=== PATIENT | female | born 1965 | race Caucasian/White ===

== ENCOUNTER 2017-08-15 22:49 | Emergency (ER) | payer OTHER ==
[2017-08-16] MEDS ORDERED: MAG HYDROX/AL HYDROX/SIMETH 30 ML, HYOSCYAMINE ELIXIR 10 ML, CIMETIDINE HCL 300 MG, LID... PO STA ×4 (00:58)
--- NOTE | 2017-08-16 01:04 | ED ---
Abdominal Pain HPI - General Chief Complaint: Abdominal Pain Stated Complaint: Abdominal Pain Time Seen by Provider: 08/16/17 00:49 Source: patient, RN notes reviewed Mode of arrival: wheelchair Limitations: no limitations - History of Present Illness Initial Comments: This is a 51-year-old female who presents to the emergency department with chief complaint of abdominal pain. Patient states that she ate a Caesar salad for dinner tonight. She states that when she returned home she developed epigastric burning pain with intermittent sharp pain. She states that she also developed some diarrhea. Patient states that her daughter ate the same food this evening and also developed diarrhea. Patient states that the epigastric pain has been constant. She does report a history of acid reflux. She states that she did try to take some Tums with minimal relief. She denies any fevers or chills, chest pain or shortness of breath. She does state that when the sharp pain comes on she becomes diaphoretic. She states the pain is made better by pushing on her stomach. - Related Data Previous Rx's Medication Instructions Recorded Omeprazole [PriLOSEC] 20 mg PO AC-BRKFST #10 cap 08/16/17 Allergies Allergy/AdvReac Type Severity Reaction Status Date / Time Penicillins Allergy Unknown Verified 08/15/17 23:06 Review of Systems ROS Statement: Those systems with pertinent positive or pertinent negative responses have been documented in the HPI. ROS Other: All systems not noted in ROS Statement are negative. Past Medical History Past Medical History: Asthma, Hypertension History of Any Multi-Drug Resistant Organisms: None Reported Past Surgical History: Section, Hysterectomy, Tonsillectomy Past Psychological History: No Psychological Hx Reported Smoking Status: Never smoker Past Alcohol Use History: Occasional Past Drug Use History: None Reported General Exam - General Exam Comments Initial Comments: General: Awake and alert, well-developed; in no apparent distress. HEENT: Head atraumatic, normocephalic. Pupils are equal, round and reactive to light. Extraocular movements intact. Oropharynx moist without erythema or exudate. Neck: Supple. Normal ROM. Cardiovascular: Regular rate and rhythm. No murmurs, rubs or gallops. Chest symmetrical. Respiratory: Lungs clear to auscultation bilaterally. No wheezes, rales or rhonchi. Normal respiratory effort with no use of accessory muscles. Abdomen: Soft, non-tender, non-distended. No rigidity, rebound or guarding. Normal bowel sounds in all 4 quadrants. Musculoskeletal: Normal ROM, no tenderness bilateral upper and lower extremities. Ambulating normally. Skin: [place], warm and dry without rashes or lesions. Neurological: Alert and oriented x3. CN II-XII grossly intact. Speech is fluent and answers are appropriate. No focal neuro deficits. Psychiatric: Normal mood and affect. No overt signs of depression or anxiety noted. Limitations: no limitations Course Vital Signs 08/15/17 23:03 Temperature 98.5 F Pulse Rate 67 Respiratory 18 Rate Blood Pressure 129/81 O2 Sat by Pulse 94 L Oximetry Medical Decision Making - Medical Decision Making This is a 51-year-old female who presented to the emergency department with chief complaint of epigastric pain, nausea and diarrhea. Patient developed epigastric pain at 7 PM last evening as well as diarrhea. She states that her daughter also developed diarrhea. They both had the same dinner. Patient states that she has been dealing with acid reflux issues recently and episodes of acid reflux have been becoming more frequent. Patient's vital signs been stable and she is afebrile. She was given a GI cocktail and did throw that up. CBC revealed a slightly elevated white count of 13.8 with a left shift at 12.5. CMP was unremarkable. Urine revealed 3+ ketones. No signs of infection. Abdomen is soft and non-tender on palpation. EKG revealed normal sinus rhythm. On reexamination, patient states after she threw up she feels 100 % improved. She states that she is no longer experiencing abdominal pain, nausea or feeling like she has to have diarrhea. Patient will be discharged home at this time. She is in no acute distress. She will follow-up with her primary care provider within 1-2 days. Patient will be started on omeprazole as she requested. She is in agreement and voices understanding. All questions answered. - Lab Data Result diagrams: 08/16/17 01:22 08/16/17 01:22 Lab Results 08/16/17 08/16/17 08/16/17 Range/Units 01:22 01:22 01:22 WBC 13.8 H (3.8-10.6) k/uL RBC 5.34 (3.80-5.40) m/uL Hgb 15.4 (11.4-16.0) gm/dL Hct 44.5 (34.0-46.0) % MCV 83.3 (80.0-100.0) fL MCH 28.9 (25.0-35.0) pg MCHC 34.7 (31.0-37.0) g/dL RDW 14.7 (11.5-15.5) % Plt Count 261 (150-450) k/uL Neutrophils % 91 % Lymphocytes % 4 % Monocytes % 3 % Eosinophils % 2 % Basophils % 0 % Neutrophils # 12.5 H (1.3-7.7) k/uL Lymphocytes # 0.5 L (1.0-4.8) k/uL Monocytes # 0.4 (0-1.0) k/uL Eosinophils # 0.3 (0-0.7) k/uL Basophils # 0.0 (0-0.2) k/uL PT 9.8 (9.0-12.0) sec INR 1.0 (<1.2) APTT 23.0 (22.0-30.0) sec Sodium 139 (137-145) mmol/L Potassium 3.5 (3.5-5.1) mmol/L Chloride 101 (98-107) mmol/L Carbon Dioxide 25 (22-30) mmol/L Anion Gap 13 mmol/L BUN 15 (7-17) mg/dL Creatinine 0.60 (0.52-1.04) mg/dL Est GFR (CKD-EPI)AfAm >90 (>60 ml/min/1.73 sqM) Est GFR (CKD-EPI)NonAf >90 (>60 ml/min/1.73 sqM) Glucose 137 H (74-99) mg/dL Calcium 9.3 (8.4-10.2) mg/dL Total Bilirubin 1.0 (0.2-1.3) mg/dL AST 29 (14-36) U/L ALT 48 (9-52) U/L Alkaline Phosphatase 66 (38-126) U/L Total Protein 7.0 (6.3-8.2) g/dL Albumin 4.3 (3.5-5.0) g/dL Amylase 39 (30-110) U/L Lipase 32 (23-300) U/L Urine Color Urine Appearance (Clear) Urine pH (5.0-8.0) Ur Specific [place] (1.001-1.035) Urine Protein (Negative) Urine Glucose (UA) (Negative) Urine Ketones (Negative) Urine Blood (Negative) Urine Nitrite (Negative) Urine Bilirubin (Negative) Urine Urobilinogen (<2.0) mg/dL Ur Leukocyte Esterase (Negative) Urine HCG, Qual (Not Detectd) 08/16/17 08/16/17 Range/Units 02:45 02:45 WBC (3.8-10.6) k/uL RBC (3.80-5.40) m/uL Hgb (11.4-16.0) gm/dL Hct (34.0-46.0) % MCV (80.0-100.0) fL MCH (25.0-35.0) pg MCHC (31.0-37.0) g/dL RDW (11.5-15.5) % Plt Count (150-450) k/uL Neutrophils % % Lymphocytes % % Monocytes % % Eosinophils % % Basophils % % Neutrophils # (1.3-7.7) k/uL Lymphocytes # (1.0-4.8) k/uL Monocytes # (0-1.0) k/uL Eosinophils # (0-0.7) k/uL Basophils # (0-0.2) k/uL PT (9.0-12.0) sec INR (<1.2) APTT (22.0-30.0) sec Sodium (137-145) mmol/L Potassium (3.5-5.1) mmol/L Chloride (98-107) mmol/L Carbon Dioxide (22-30) mmol/L Anion Gap mmol/L BUN (7-17) mg/dL Creatinine (0.52-1.04) mg/dL Est GFR (CKD-EPI)AfAm (>60 ml/min/1.73 sqM) Est GFR (CKD-EPI)NonAf (>60 ml/min/1.73 sqM) Glucose (74-99) mg/dL Calcium (8.4-10.2) mg/dL Total Bilirubin (0.2-1.3) mg/dL AST (14-36) U/L ALT (9-52) U/L Alkaline Phosphatase (38-126) U/L Total Protein (6.3-8.2) g/dL Albumin (3.5-5.0) g/dL Amylase (30-110) U/L Lipase (23-300) U/L Urine Color Yellow Urine Appearance Clear (Clear) Urine pH 7.0 (5.0-8.0) Ur Specific [place] 1.021 (1.001-1.035) Urine Protein Trace H (Negative) Urine Glucose (UA) Negative (Negative) Urine Ketones 3+ H (Negative) Urine Blood Negative (Negative) Urine Nitrite Negative (Negative) Urine Bilirubin Negative (Negative) Urine Urobilinogen <2.0 (<2.0) mg/dL Ur Leukocyte Esterase Negative (Negative) Urine HCG, Qual Not Detected (Not Detectd) Disposition Clinical Impression: Abdominal pain, Gastritis Disposition: HOME SELF-CARE Condition: Good Instructions: Abdominal Pain (ED), Gastroesophageal Reflux Disease (ED) Additional Instructions: Please take medications as prescribed. Please follow up with primary care provider within 1-2 days. Return to emergency department if symptoms should worsen or any concerns arise. Prescriptions: Omeprazole [PriLOSEC] 20 mg PO -BRKFST #10 cap Is patient prescribed a controlled substance at d/c from ED?: No Referrals: None,Stated [Primary Care Provider] - 1-2 days Time of Disposition: 03:25
[2017-08-16] MEDS ORDERED: ACETAMINOPHEN TAB 500 MG TAB PO STA (01:28)
[2017-08-16 01:32] LABS: Basophils % (A) 0 %; Eosinophils # (A) 0.3 k/uL (0-0.7); Eosinophils % (A) 2 %; HCT 44.5 % (34.0-46.0); HGB 15.4 gm/dL (11.4-16.0); Lymphocytes # (A) 0.5 k/uL (1.0-4.8); Lymphocytes % (A) 4 %; MCH 28.9 pg (25.0-35.0); MCHC 34.7 g/dL (31.0-37.0); MCV 83.3 fL (80.0-100.0); Mean Platelet Volume 6.5; Monocytes # (A) 0.4 k/uL (0-1.0); Monocytes % (A) 3 %; Neutrophils # (A) 12.5 k/uL (1.3-7.7); Neutrophils % (A) 91 %; Platelet Count 261 k/uL (150-450); RBC 5.34 m/uL (3.80-5.40); RDW 14.7 % (11.5-15.5); WBC 13.8 k/uL (3.8-10.6)
[2017-08-16 01:42] LABS: ALT 48 U/L (9-52); AST 29 U/L (14-36); Albumin 4.3 g/dL (3.5-5.0); Alkaline Phosphatase 66 U/L (38-126); Amylase 39 U/L (30-110); Anion Gap 13 mmol/L; Blood Urea Nitrogen 15 mg/dL (7-17); Calcium 9.3 mg/dL (8.4-10.2); Carbon Dioxide 25 mmol/L (22-30); Chloride 101 mmol/L (98-107); Glucose 137 mg/dL (74-99); Lipase 32 U/L (23-300); Potassium 3.5 mmol/L (3.5-5.1); Sodium 139 mmol/L (137-145)
[2017-08-16 01:43] LABS: Prothrombin Time 9.8 sec (9.0-12.0)
[2017-08-16] MEDS ORDERED: ONDANSETRON 4 MG/2 ML VIAL IVP STA (02:03)
[2017-08-16 03:02] LABS: Appearance,Urine Clear (Clear); Bilirubin,Urine Negative (Negative); Blood,Urine Negative (Negative); Color,Urine Yellow; Glucose,Urine (UA) Negative (Negative); Ketones,Urine 3+ (Negative); Leukocyte Esterase,Urine Negative (Negative); Nitrite,Urine Negative (Negative); Protein,Urine Trace (Negative); Specific Gravity,Urine 1.021 (1.001-1.035); Urobilinogen,Urine <2.0 mg/dL (<2.0)
[2017-08-16 03:42] VITALS: BP 138/68; PULSE 65; RESP 20; TEMP 98
== END 2017-08-16 03:42 | disposition home or self-care (01) ==
LOC: EC 22:49
DX: K29.70 Gastritis, unspecified, without bleeding (principal); K21.9 Gastro-esophageal reflux disease without esophagitis; Z88.0 Allergy status to penicillin
CPT/HCPCS: 36415; 93005; 80053; 82150; 83690; 85025; 85610; 85730; 81003; 81025; 99284; 96374; J2405

== ENCOUNTER 2018-02-24 19:49 | Emergency (ER) | payer OTHER ==
[2018-02-24] MEDS ORDERED: KETOROLAC 30 MG/ML 1 ML VIAL IM STA (21:16)
--- NOTE | 2018-02-24 21:22 | ED ---
General Adult HPI - General Chief complaint: Recheck/Abnormal Lab/Rx Stated complaint: Infection in salivary glands Time Seen by Provider: 02/24/18 20:42 Source: patient, RN notes reviewed Mode of arrival: ambulatory Limitations: no limitations - History of Present Illness Initial comments: 52-year-old female with a past medical history of chronic sialadenitis presents to the emergency department for a chief complaint of left sided sialoadenitis. Patient states this started 2 nights ago. She saw her primary yesterday and was given clindamycin. She states usually it would help by now but it has not. She has been taking these for about 24 hours. Patient recently moved to the area but was previously seeing a specialist and has had both a salivary gland scoped in the past. She states this is consistent with past episodes of sialadenitis. She states the pain is worsening on the antibiotics. She denies fevers or chills at home. Patient has no other complaints at this time including shortness of breath, chest pain, abdominal pain, nausea or vomiting, headache, or visual changes. - Related Data Home Medications Medication Instructions Recorded Confirmed Clindamycin HCl 300 mg PO TID 02/24/18 02/24/18 Fluticasone Nasal [place] [Flonase 1 spray EA NOSTRIL HS 02/24/18 02/24/18 Nasal [place]] Fluticasone/Salmeterol [Advair 1 puff INHALATION RT-HS 02/24/18 02/24/18 250-50 Diskus] Hydrochlorothiazide [Hydrodiuril] 25 mg PO DAILY 02/24/18 02/24/18 Multivitamins, Thera [Multivitamin 1 tab PO DAILY 02/24/18 02/24/18 (formulary)] oxyCODONE HCL 15 mg PO Q6H PRN 02/24/18 02/24/18 Allergies Allergy/AdvReac Type Severity Reaction Status Date / Time Penicillins Allergy Unknown Verified 02/24/18 20:29 Review of Systems ROS Statement: Those systems with pertinent positive or pertinent negative responses have been documented in the HPI. ROS Other: All systems not noted in ROS Statement are negative. Past Medical History Past Medical History: Asthma, Hypertension History of Any Multi-Drug Resistant Organisms: None Reported Past Surgical History: Section, Hysterectomy, Tonsillectomy Past Psychological History: No Psychological Hx Reported Smoking Status: Never smoker Past Alcohol Use History: Occasional Past Drug Use History: None Reported General Exam Limitations: no limitations General appearance: alert, in no apparent distress Head exam: Present: atraumatic, normocephalic, normal inspection Eye exam: Present: normal appearance, PERRL, EOMI. Absent: scleral icterus, conjunctival injection, periorbital swelling ENT exam: Present: normal exam, normal oropharynx, mucous membranes moist, TM's normal bilaterally, normal external ear exam, other (Patient has tenderness noted to the left mandibular angle. No swelling or erythema noted to the parotid gland. No swelling under the tongue.) Neck exam: Present: normal inspection, full ROM. Absent: tenderness, meningismus, lymphadenopathy Respiratory exam: Present: normal lung sounds bilaterally. Absent: respiratory distress, wheezes, rales, rhonchi, stridor Cardiovascular Exam: Present: regular rate, normal rhythm, normal heart sounds. Absent: systolic murmur, diastolic murmur, rubs, gallop, clicks GI/Abdominal exam: Present: soft, normal bowel sounds. Absent: distended, tenderness, guarding, rebound, rigid Neurological exam: Present: alert, oriented X3, CN II-XII intact Psychiatric exam: Present: normal affect, normal mood Course Vital Signs 02/24/18 19:53 Temperature 98.6 F Pulse Rate 67 Respiratory 16 Rate Blood Pressure 139/87 O2 Sat by Pulse 97 Oximetry Medical Decision Making - Medical Decision Making 52-year-old female with a past medical history hypertension asthma and chronic sialadenitis presents to the emergency department for a chief adenitis. Vitals are within acceptable limits. Patient states has been going on for 2 days and has been on antibiotics for 24 hours. Patient states the symptoms are not worsening but are not improving. Exam is generally unremarkable. She does have tenderness noted to the left mandibular angle but does not have any edema or erythema noted. No edema sublingually. Patient currently on clindamycin. She is penicillin ALLERGIC. Alternative antibiotics for sialadenitis include Augmentin and Keflex which both have a cross reactivity to penicillin. At this time discussed options with patient such as trying starting another antibiotic or continuing clindamycin for another 24 hours to see results. At this time it is agreed upon that we will continue clindamycin for 24 hours but if symptoms worsen then she will return to the emergency department. Disposition Clinical Impression: Sialadenitis Disposition: HOME SELF-CARE Condition: Good Instructions: Sialoadenitis (ED) Additional Instructions: Please continue clindamycin. Take Motrin and Tylenol for pain. Return to the emergency department if you have any worsening symptoms. Is patient prescribed a controlled substance at d/c from ED?: No Referrals: Maria Dolores Rudolph MD [Primary Care Provider] - 1-2 days Time of Disposition: 21:31
[2018-02-24 21:50] VITALS: BP 131/83; PULSE 60; RESP 18; TEMP 97.7
== END 2018-02-24 21:50 | disposition home or self-care (01) ==
LOC: EC 19:49
DX: K11.20 Sialoadenitis, unspecified (principal); J45.909 Unspecified asthma, uncomplicated; I10 Essential (primary) hypertension; Z88.0 Allergy status to penicillin; Z79.51 Long term (current) use of inhaled steroids; Z79.899 Other long term (current) drug therapy
CPT/HCPCS: 99283; 96372; J1885

== ENCOUNTER 2018-06-08 19:09 | Emergency (ER) | payer OTHER ==
[2018-06-08 19:26] VITALS: TEMP 98.5
[2018-06-08] MEDS ORDERED: CLINDAMYCIN 150 MG CAP PO STA (20:14)
--- NOTE | 2018-06-08 20:26 | ED ---
ENT HPI - General Chief complaint: ENT Stated complaint: Infection Source: patient Mode of arrival: ambulatory Limitations: no limitations - History of Present Illness Initial comments: 52-year-old female with past medical history of sialoadenitis presents today for chief complaint of I have sialoadenitis again. Patient states that she has had sialoadenitis multiple times over the course of 5 years. Patient states today after eating breakfast she developed swelling of the right side of her neck near the angle of jaw. Patient states is identical to when she's had sialoadenitis in the past. Patient states she usually is prescribed clindamycin and infection clears. Pt denies having a stone removed from gland in the past. She denies fever or chills night sweats difficulty swallowing or breathing. Remaining review of systems negative upon arrival patient appears well and nontoxic. Patient states she has a scheduled appointment with Dr. Gardner. - Related Data Home Medications Medication Instructions Recorded Confirmed Clindamycin HCl 300 mg PO TID 02/24/18 02/24/18 Fluticasone Nasal [place] [Flonase 1 spray EA NOSTRIL HS 02/24/18 02/24/18 Nasal [place]] Fluticasone/Salmeterol [Advair 1 puff INHALATION RT-HS 02/24/18 02/24/18 250-50 Diskus] Hydrochlorothiazide [Hydrodiuril] 25 mg PO DAILY 02/24/18 02/24/18 Multivitamins, Thera [Multivitamin 1 tab PO DAILY 02/24/18 02/24/18 (formulary)] oxyCODONE HCL [oxyCODONE HCL (IR)] 15 mg PO Q6H PRN 02/24/18 02/24/18 Previous Rx's Medication Instructions Recorded Clindamycin [Cleocin] 450 mg PO Q6H 10 Days #120 capsule 06/08/18 Allergies Allergy/AdvReac Type Severity Reaction Status Date / Time Penicillins Allergy Unknown Verified 06/08/18 19:25 Review of Systems ROS Statement: Those systems with pertinent positive or pertinent negative responses have been documented in the HPI. ROS Other: All systems not noted in ROS Statement are negative. Past Medical History Past Medical History: Asthma, Hypertension History of Any Multi-Drug Resistant Organisms: None Reported Past Surgical History: Section, Hysterectomy, Tonsillectomy Past Psychological History: No Psychological Hx Reported Smoking Status: Never smoker Past Alcohol Use History: Occasional Past Drug Use History: None Reported General Exam - General Exam Comments Initial Comments: General: The patient is awake and alert, in no distress, and does not appear acutely ill. Eye: Pupils are equal, round and reactive to light, extra-ocular movements are intact. No nystagmus. There is normal conjunctiva bilaterally. No signs of icterus. Ears, nose, mouth and throat: There are moist mucous membranes and no oral lesions. enlargement of right submandibular gland. no warmth, redness. No drooling or tripoding. Oropharynx nonerythematous no tonsillar enlargement exudates or lesions. Neck: The neck is supple, there is no tenderness or JVD. Cardiovascular: There is a regular rate and rhythm. No murmur, rub or gallop is appreciated. Respiratory: Lungs are clear to auscultation, respirations are non-labored, breath sounds are equal. No wheezes, stridor, rales, or rhonchi. Gastrointestinal: Soft, non-distended, non-tender abdomen without masses or organomegaly noted. There is no rebound or guarding present. No CVA tenderness. Bowel sounds are unremarkable. Musculoskeletal: Normal ROM, no tenderness. Strength 5/5. Sensation intact. Pulses equal bilaterally 2+. Neurological: A&O x 3. CN II-XII intact, There are no obvious motor or sensory deficits. Coordination appears grossly intact. Speech is normal. Skin: Skin is warm and dry and no rashes or lesions are noted. Psychiatric: Cooperative, appropriate mood & affect, normal judgment. Limitations: no limitations Course Vital Signs 06/08/18 06/08/18 19:23 20:30 Temperature 98.5 F Pulse Rate 51 L 54 L Respiratory 20 18 Rate Blood Pressure 133/76 128/72 O2 Sat by Pulse 98 98 Oximetry Medical Decision Making - Medical Decision Making 52-year-old male presenting for siloadenitis. Pt has had this type of infection multiple times in the past, she states her symptoms are identical. Patient states clindamycin usually works for treatment of infection. Patient has appointment scheduled with ENT specialist Dr. Gardner, she states she was unable to get an appointment today. Patient physical examination findings consistent with right submandibular sialoadenitis. No pus was expressed from the oral cavity. Relatively small no significant enlargement. Patient denies constitutional symptoms. No compressive symptoms. At this time patient is stable for discharge with outpatient follow-up with ENT as scheduled. Patient developed primary care provider in the next 1-2 days if she is unable to obtain sooner appointment with Dr. Gardner. Patient return parameters were discussed at length including increasing swelling, difficulty breathing swelling fever or chills night sweats. I discussed the case attending provider Dr. Gary Prior to patient's discharge. Disposition Clinical Impression: Sialadenitis Disposition: HOME SELF-CARE Condition: Good Instructions (If sedation given, give patient instructions): Sialoadenitis (ED) Additional Instructions: Please use medication as discussed. Please follow-up with ENT as scheduled. Please return to emergency room if the symptoms increase or worsen or for any other concerns. Prescriptions: Clindamycin [Cleocin] 450 mg PO Q6H 10 Days #120 capsule Is patient prescribed a controlled substance at d/c from ED?: No Referrals: Maria Dolores Rudolph MD [Primary Care Provider] - 1-2 days Aidan Blake DO [Doctor of Osteopathic Medicine] - 1-2 days Time of Disposition: 20:25
[2018-06-08 20:31] VITALS: BP 128/72; PULSE 54; RESP 18
== END 2018-06-08 20:31 | disposition home or self-care (01) ==
LOC: EC 19:09
DX: K11.20 Sialoadenitis, unspecified (principal); J45.909 Unspecified asthma, uncomplicated; I10 Essential (primary) hypertension; Z79.51 Long term (current) use of inhaled steroids; Z79.899 Other long term (current) drug therapy; Z88.0 Allergy status to penicillin
CPT/HCPCS: 99283

== ENCOUNTER → 2018-07-20 | Outpatient (CLI) | payer OTHER ==
[2018-07-20 17:37] LABS: Blood Urea Nitrogen 20 mg/dL (7-17)
--- NOTE | 2018-07-21 09:22 | CT ---
EXAMINATION TYPE: CT soft tissue neck w con DATE OF EXAM: 07/20/2018 HISTORY: RT side submandibular mass, pt states has been present for 7 weeks. Marked with BB. COMPARISON: NONE CT DLP: 430.10 mGycm. Automated Exposure Control for Dose Reduction was Utilized. TECHNIQUE: CT scan of the neck is performed with IV Contrast, patient injected with 100 mL of Isovue 300, axial images are obtained, coronal and sagittal reformatted images are reviewed. FINDINGS: Airway: No gross abnormality seen. Parotid/submandibular glands: There is an isoechoic rounded lesion measuring approximately 8 x 7 x 10 mm situated between the inferior margin of the deep lobe of the thyroid gland directly anterior and medial to the retromandibular vein abutting the submandibular gland on series 3 image 56 and better s een on sagittal series 6 image 23. On sagittal images this appears to have a hypoechoic center and co uld represent a lymph node versus salivary gland neoplasm. Alternatively this is similar to the surro unding salivary gland tissue and could simply represent rounded heterogeneity of the gland although i s asymmetric to the left. There are also bilateral sialoliths of the parotid glands without ductal di latation or surrounding fat stranding to suggest sialoadenitis. Carotid/Vascular Structures: There is a conventional three-vessel branch pattern of the aortic arch. Common carotids, carotid bulbs, and visualized portions of the internal carotid arteries are patent w ithout hemodynamically significant stenosis. Vertebral arteries are also patent and codominant. Osseous Structures: Moderate degenerative disc disease of the mid to lower cervical spine is noted wi th posterior disc osteophyte complex at C5-C6 creating mild spinal canal stenosis on sagittal image 3 5. Other: Lung apices appear well aerated. Nonenlarged lymph nodes are seen in the left supraclavicular region measuring 5 mm in short axis on image 31 and within the neck. No pathologically enlarged lymph nodes are seen. Paranasal sinuses and mastoid air cells are well aerated. IMPRESSION: 1. Subtle ovoid 10 mm mass at the inferior aspect of the deep lobe of the right parotid gland abuttin g the submandibular gland. The central portion of this lesion is hypoattenuated and this could repres ent a nonenlarged lymph node or salivary gland neoplasm. Given its small size accurate assessment of potential internal fat is not appreciated on CT. MRI of the neck with fat saturated and nonfat satura shanthi sequence could further delineate etiology of possible lymph node versus salivary gland neoplasm. 2. Moderate degenerative disc disease of the mid to lower cervical spine with posterior disc osteophy te complex at 6 creating mild spinal canal stenosis.
== END | disposition home or self-care (01) ==
LOC: RADCTMAIN 16:45
PROVIDERS: ATTEND Otolaryngology
DX: M48.02 Spinal stenosis, cervical region (principal); M50.30 Other cervical disc degeneration, unspecified cervical region; Z13.89 Encounter for screening for other disorder
CPT/HCPCS: 82565; 84520; 70491; 36415; Q9967

== ENCOUNTER → 2018-10-09 | Outpatient (CLI) | payer OTHER ==
--- NOTE | 2018-10-16 10:08 | MM ---
Reason for exam: screening (asymptomatic). Last mammogram was performed 7 months ago. History: Family history of breast cancer in sister at age 50. Taking hormonal contraceptives for 10 years. Physical Findings: A clinical breast exam by your physician is recommended on an annual basis and results should be correlated with mammographic findings. MG 3D Screening Mammo W/Cad Bilateral CC and MLO view(s) were taken. Prior study comparison: February 26, 2018, mammogram, performed at [place]. January 22, 2014, mammogram, performed at [place]. January 11, 2009, bilateral digital screening mammogram. November 22, 2003, bilateral screening mammogram. The breast tissue is heterogeneously dense. This may lower the sensitivity of mammography. There is no discrete abnormality. No significant changes when compared with prior studies. ASSESSMENT: Negative, BI-RAD 1 RECOMMENDATION: Routine screening mammogram of both breasts in 1 year.
== END | disposition home or self-care (01) ==
LOC: RADMAMWWP 07:49
PROVIDERS: ATTEND Family Medicine
DX: Z12.31 Encounter for screening mammogram for malignant neoplasm of breast (principal)
CPT/HCPCS: 77063; 77067

== ENCOUNTER → 2020-07-10 | Outpatient (CLI) | payer OTHER ==
--- NOTE | 2020-07-11 11:42 | MM ---
Reason for exam: screening (asymptomatic). Last mammogram was performed 1 year and 9 months ago. History: Patient is postmenopausal. Family history of breast cancer in sister at age 50. Taking hormonal contraceptives for 10 years. Physical Findings: A clinical breast exam by your physician is recommended on an annual basis and results should be correlated with mammographic findings. MG 3D Screening Mammo W/Cad Bilateral CC and MLO view(s) were taken. Prior study comparison: October 09, 2018, bilateral MG 3d screening mammo w/cad. February 26, 2018, mammogram, performed at [place]. The breast tissue is heterogeneously dense. This may lower the sensitivity of mammography. There is no discrete abnormality. ASSESSMENT: Negative, BI-RAD 1 RECOMMENDATION: Routine screening mammogram of both breasts in 1 year.
== END | disposition home or self-care (01) ==
LOC: RADMAMWWP 09:10
PROVIDERS: ATTEND Family Medicine
DX: Z12.31 Encounter for screening mammogram for malignant neoplasm of breast (principal); Z78.0 Asymptomatic menopausal state; Z80.3 Family history of malignant neoplasm of breast
CPT/HCPCS: 77063; 77067

== ENCOUNTER → 2020-10-03 | Outpatient (CLI) | payer OTHER ==
--- NOTE | 2020-10-03 10:41 | XR ---
EXAMINATION TYPE: XR chest 2V DATE OF EXAM: 10/03/2020 COMPARISON: NONE TECHNIQUE: PA and lateral views submitted. HISTORY: Palpable abnormality FINDINGS: The lungs are clear and there is no pneumothorax, pleural effusion, or focal pneumonia. Heart size normal. No overt failure. Arthropathy of the shoulders. IMPRESSION: 1. No acute process.
== END | disposition home or self-care (01) ==
LOC: RADXRMAIN 10:12
PROVIDERS: ATTEND Physician Assistant
DX: R91.8 Other nonspecific abnormal finding of lung field (principal)
CPT/HCPCS: 71046

== ENCOUNTER → 2020-10-24 | Outpatient (CLI) | payer OTHER ==
--- NOTE | 2020-10-24 11:02 | NM ---
EXAMINATION TYPE: NM stress cardiolite complete DATE OF EXAM: 10/24/2020 COMPARISON: NONE HISTORY: Chest pain TECHNIQUE: After the intravenous administration of 9.2 mCi Tc 99m Sestamibi - Rest images obtained 4 5 minutes post injection. The patient exercised using a BRENDA protocol and 1 minute prior to peak e xercise was injected with 24.4 mCi Tc 99m Sestamibi - Stress images obtained 10 minutes post injectio n. FINDINGS: Targeted heart rate was achieved during performance of the study. Review of stress and rest SPECT aida ges demonstrates no distinct perfusion abnormality. Gated analysis shows normal wall motion with an estimated left ventricular ejection fraction of 68 %. IMPRESSION: No scintigraphic evidence for reversible ischemia
--- NOTE | 2020-10-24 12:33 | P.STRESS ---
- Stress Test Note Stress Test Results/Findings: Exam Performed: NM stress cardiolite complete Exam Date: 10/24/20 Reason for Exam: PALPITATIONS Height: 5 ft 4 in Weight: 175 kg Protocol: 80 Stage: 4 Duration of Exercise: 9:46 Resting Heart Rate: 55 Resting Blood Pressure: 139/81 Maximum Achieved Heart Rate: 174 Maximum Achieved Blood Pressure: 183/102 85% PMHR: 139 100% PMHR: 164 METS: 11.3 Technologist Comment: Stress Test Results/Findings: This is a 54-year-old female with history of hypertension, hypercholesteremia, family history being evaluated for symptoms of palpitations. Stress data: Baseline EKG showed sinus rhythm with normal ID and QRS duration with poor R-wave progression in anterior leads. Blood pressure at rest is 1 39/81 at pulse rate of 55. Patient walked on the Sam protocol for 9 minutes and 46 seconds achieving a maximum heart rate of 174 with a blood pressure 168/94. EKGs show significant artifact during exercise and difficult to interpret the EKGs taken immediately after exercise showed mild J-point depression with upsloping ST segments. Patient did not express any chest pain. Final impression: #1. Probably negative stress test. Difficult to interpret the EKG because of baseline artifacts during the test but I did not see any definite ischemic changes. #2. No complaints of any chest pain #3. No arrhythmias noted. #4. Report on the nuclear images to be given by the radiologist
--- NOTE | 2020-10-27 10:33 | EST ---
Stress Test Results/Findings: Exam Performed: NM stress cardiolite complete Exam Date: 10/24/20 Reason for Exam: PALPITATIONS Height: 5 ft 4 in Weight: 175 kg Protocol: 80 Stage: 4 Duration of Exercise: 9:46 Resting Heart Rate: 55 Resting Blood Pressure: 139/81 Maximum Achieved Heart Rate: 174 Maximum Achieved Blood Pressure: 183/102 85% PMHR: 139 100% PMHR: 164 METS: 11.3 Technologist Comment: Stress Test Results/Findings: This is a 54-year-old female with history of hypertension, hypercholesteremia, family history being evaluated for symptoms of palpitations. Stress data: Baseline EKG showed sinus rhythm with normal MD and QRS duration with poor R-wave progression in anterior leads. Blood pressure at rest is 139/81 at pulse rate of 55. Patient walked on the Sam protocol for 9 minutes and 46 seconds achieving a maximum heart rate of 174 with a blood pressure 168/94. EKGs show significant artifact during exercise and difficult to interpret the EKGs taken immediately after exercise showed mild J-point depression with upsloping ST segments. Patient did not express any chest pain. Final impression: #1. Probably negative stress test. Difficult to interpret the EKG because of baseline artifacts during the test but I did not see any definite ischemic changes. #2. No complaints of any chest pain #3. No arrhythmias noted. #4. Report on the nuclear images to be given by the radiologist JENNIFER
== END | disposition home or self-care (01) ==
LOC: RADNMMAIN 08:09
PROVIDERS: ATTEND Family Medicine
DX: R07.9 Chest pain, unspecified (principal); R00.2 Palpitations
CPT/HCPCS: 93017; 78452; A9500

== ENCOUNTER → 2021-01-17 | Outpatient (CLI) | payer OTHER ==
--- NOTE | 2021-01-20 03:25 | MR ---
EXAMINATION TYPE: MR neck wo/w con DATE OF EXAM: 01/17/2021 COMPARISON: None HISTORY: Mass of right side of neck behind the ear CONTRAST: Standard multiplanar, multisequence MRI departmental protocol images were obtained without contrast a nd with 8 mL intravenous Gadavist gadolinium contrast. The parotid glands are symmetric. Submandibular salivary glands are symmetric. There is a skin Marker on the posterior lateral aspect of the right parotid gland. No discrete mass seen in this area. The cerebellum appears normal. Brainstem is intact. There is no evidence of posterior fossa mass. The re is normal signal pattern of the mastoid sinuses. There is no evidence of cerebellopontine angle ma ss. Internal auditory canals are symmetric. Sternocleidomastoid mastoid muscles are symmetric. Temporalis muscles are symmetric. There is normal enhancement pattern of the parotid glands. The temporomandibular joints appear intact . There is no evidence of cervical adenopathy. Cervical spine appears intact. I see no focal bone meenu truction. IMPRESSION: Negative exam. Exam fails to demonstrate evidence of a mass on the right side of the neck.
== END | disposition home or self-care (01) ==
LOC: RADMRIMAIN 08:18
PROVIDERS: ATTEND Otolaryngology
DX: R22.1 Localized swelling, mass and lump, neck (principal)
CPT/HCPCS: 70543; A9585

== ENCOUNTER 2021-05-22 13:47 | Emergency (ER) | payer OTHER ==
[2021-05-22 14:00] VITALS: TEMP 98.6
[2021-05-22 15:37] LABS: Basophils # (A) 0.1 k/uL (0-0.2); Basophils % (A) 1 %; Eosinophils # (A) 0.5 k/uL (0-0.7); Eosinophils % (A) 8 %; HCT 42.5 % (34.0-46.0); HGB 14.3 gm/dL (11.4-16.0); Lymphocytes # (A) 1.8 k/uL (1.0-4.8); Lymphocytes % (A) 28 %; MCH 29.3 pg (25.0-35.0); MCHC 33.7 g/dL (31.0-37.0); MCV 86.9 fL (80.0-100.0); Mean Platelet Volume 7.2; Monocytes # (A) 0.3 k/uL (0-1.0); Monocytes % (A) 4 %; Neutrophils # (A) 3.5 k/uL (1.3-7.7); Neutrophils % (A) 56 %; Platelet Count 254 k/uL (150-450); RBC 4.89 m/uL (3.80-5.40); RDW 13.1 % (11.5-15.5); WBC 6.3 k/uL (3.8-10.6)
[2021-05-22 15:46] LABS: Appearance,Urine Clear (Clear); Bilirubin,Urine Negative (Negative); Blood,Urine Negative (Negative); Color,Urine Light Yellow; Glucose,Urine (UA) Negative (Negative); Ketones,Urine Negative (Negative); Leukocyte Esterase,Urine Negative (Negative); Nitrite,Urine Negative (Negative); PH, Urine 6.5 (5.0-8.0); Protein,Urine Negative (Negative); Specific Gravity,Urine 1.007 (1.001-1.035); Urobilinogen,Urine <2.0 mg/dL (<2.0)
[2021-05-22 15:47] LABS: ALT 22 U/L (4-34); AST 26 U/L (14-36); African American GFR (CKD) >90 (>60 ml/min/1.73 sqM); Albumin 4.4 g/dL (3.5-5.0); Alkaline Phosphatase 62 U/L (38-126); Anion Gap 9 mmol/L; Blood Urea Nitrogen 16 mg/dL (7-17); Calcium 9.1 mg/dL (8.4-10.2); Carbon Dioxide 25 mmol/L (22-30); Chloride 105 mmol/L (98-107); Glucose 88 mg/dL (74-99); Lipase 79 U/L (23-300); Non-African American GFR(CKD) >90 (>60 ml/min/1.73 sqM); Potassium 3.5 mmol/L (3.5-5.1); Sodium 139 mmol/L (137-145); Total Bilirubin 1.6 mg/dL (0.2-1.3); Total Protein 7.4 g/dL (6.3-8.2)
--- NOTE | 2021-05-22 16:09 | CT ---
EXAMINATION TYPE: CT abdomen pelvis w con DATE OF EXAM: 05/22/2021 COMPARISON: NONE HISTORY: 55-year-old female Right lower quadrant pain. TECHNIQUE: Contiguous axial scanning of the abdomen and pelvis following administration of 100 ml Iso cecil 300 IV contrast. Delayed images through the kidneys and coronal/sagittal reconstructions perform ed. CT DLP: 1079.8 mGycm Automated exposure control for dose reduction was used. FINDINGS: Heart normal size without pericardial effusion. No focal liver lesion or biliary ductal dilatation. Portal venous system is patent. Gallbladder, adrenal glands, kidneys, spleen, and pancreas within normal limits. No dilated small bowel, free fluid, or free air. A couple prominent right lower quadrant mesenteric l ymph nodes measuring up to 7 mm. Otherwise, no mesenteric or retroperitoneal lymphadenopathy. Normal appendix. There are paralleling segments of sigmoid colon which are markedly narrowed (coronal image 48 and axial image 67) with an air distended loop extending up to the right lower quadrant. No abnormal torquing of the mesenteric vasculature is identified. Findings may be secondary to redundan cy of the sigmoid colon. Mild scattered colonic diverticular change without pericolonic inflammation. Bladder partially distended. Uterus surgically absent. The ovaries are visualized. No abnormal fluid collection in the pelvis or pelvic lymphadenopathy. Bones: Mild to moderate degenerative disc disease throughout the visualized spine. IMPRESSION: 1. NORMAL APPENDIX. NO NEPHROLITHIASIS OR HYDRONEPHROSIS. NORMAL GALLBLADDER. 2. PARALLELING SEGMENTS OF THE SIGMOID COLON ARE MARKEDLY NARROWED WITH AN AIR DISTENDED LOOP EXTENDI NG TO THE RIGHT LOWER QUADRANT. NO ABNORMAL TORQUING OF THE MESENTERIC VESSELS IS IDENTIFIED TO INDIC ATE SIGMOID VOLVULUS AT THIS TIME. FINDINGS MAY BE SECONDARY TO REDUNDANCY OF THE SIGMOID COLON. IF P ATIENT'S PAIN PERSISTS OR CONCERN FOR EARLY DEVELOPING SIGMOID VOLVULUS, RADIOGRAPHIC FOLLOW-UP WILL BE RECOMMENDED. 3. SCATTERED MILD COLONIC DIVERTICULOSIS WITHOUT EVIDENCE FOR ACUTE DIVERTICULITIS.
--- NOTE | 2021-05-22 18:36 | ED ---
Abdominal Pain HPI - General Source: patient Mode of arrival: ambulatory Limitations: no limitations <Laura Chavez - Last Filed: 05/22/21 20:29> <Garth Beasley - Last Filed: 05/23/21 09:36> - General Chief Complaint: Abdominal Pain Stated Complaint: Abd pain,Fever Time Seen by Provider: 05/22/21 15:01 - History of Present Illness Initial Comments: Patient is a 55-year-old female who presents to the emergency department with a chief complaint of abdominal pain since yesterday. Patient reports the pain is localized in the right lower quadrant of the abdomen and comes and goes with very sharp pain. Pain is not related to food or liquid intake. Patient has never experienced this pain before. Patient denies other concerns at this time including fever, chills, shortness of breath, chest pain, nausea, vomiting, constipation, burning with urination. Last bowel movement was this morning which was normal. Patient has a history of abdominoplasty, hysterectomy, and c- section. She denies other abdominal past medical history or surgeries. (Laura Chavez) - Related Data Home Medications Medication Instructions Recorded Confirmed Fluticasone Nasal [place] [Flonase 1 spray EA NOSTRIL HS 02/24/18 05/22/21 Nasal [place]] Multivitamins, Thera [Multivitamin 1 tab PO DAILY 02/24/18 05/22/21 (formulary)] hydroCHLOROthiazide [Hydrodiuril] 12.5 mg PO DAILY 02/24/18 05/22/21 Atorvastatin Calcium [Lipitor] 20 mg PO MOWEFR@2100 05/22/21 05/22/21 Cyclobenzaprine [Flexeril] 10 mg PO DAILY PRN 05/22/21 05/22/21 FLUoxetine HCL [PROzac] 10 mg PO DAILY 05/22/21 05/22/21 Loratadine [Claritin] 10 mg PO DAILY 05/22/21 05/22/21 Allergies Allergy/AdvReac Type Severity Reaction Status Date / Time Penicillins Allergy Unknown Verified 05/22/21 16:58 Childhood Review of Systems ROS Other: All systems not noted in ROS Statement are negative. <Laura Chavez - Last Filed: 05/22/21 20:29> ROS Other: All systems not noted in ROS Statement are negative. <Garth Beasley - Last Filed: 05/23/21 09:36> ROS Statement: Those systems with pertinent positive or pertinent negative responses have been documented in the HPI. Past Medical History Past Medical History: Asthma, Hypertension History of Any Multi-Drug Resistant Organisms: None Reported Past Surgical History: Section, Hysterectomy, Tonsillectomy Additional Past Surgical History / Comment(s): abdominoplasty Past Anesthesia/Blood Transfusion Reactions: No Reported Reaction Past Psychological History: No Psychological Hx Reported Smoking Status: Never smoker Past Alcohol Use History: Occasional Past Drug Use History: None Reported <Laura Chavez - Last Filed: 05/22/21 20:29> General Exam Limitations: no limitations General appearance: alert, in no apparent distress Head exam: Present: atraumatic, normocephalic, normal inspection Respiratory exam: Present: normal lung sounds bilaterally. Absent: respiratory distress, wheezes, rales, rhonchi, stridor Cardiovascular Exam: Present: regular rate, normal rhythm, normal heart sounds. Absent: systolic murmur, diastolic murmur, rubs, gallop, clicks GI/Abdominal exam: Present: soft, tenderness (Right lower quadrant), normal bowel sounds. Absent: distended, guarding, rebound, rigid Back exam: Present: normal inspection, full ROM. Absent: tenderness Neurological exam: Present: alert, oriented X3, CN II-XII intact Psychiatric exam: Present: normal affect, normal mood Skin exam: Present: warm, dry, intact, normal color. Absent: rash <Laura Chavez - Last Filed: 05/22/21 20:29> Course Vital Signs 05/22/21 05/22/21 13:57 19:02 Temperature 98.6 F Pulse Rate 60 54 L Respiratory 18 16 Rate Blood Pressure 146/87 163/77 O2 Sat by Pulse 97 93 L Oximetry Medical Decision Making - Lab Data Result diagrams: 05/22/21 15:28 05/22/21 15:28 <Laura Chavez - Last Filed: 05/22/21 20:29> - Lab Data Result diagrams: 05/22/21 15:28 05/22/21 15:28 <Garth Beasley - Last Filed: 05/23/21 09:36> - Medical Decision Making This is a 55-year-old female who presents with intermittent sharp right lower quadrant abdominal pain since yesterday. Thorough history and examination were performed. Patient is afebrile. She is moderately tender with palpation of the right lower quadrant of the abdomen. Laboratory studies are unremarkable. CT of the abdomen and pelvis with contrast was obtained which reveals a normal appe ndix, normal gallbladder, and no nephrolithiasis or hydronephrosis. There is paralleling segments of sigmoid colon that are markedly narrowed with an an air distended loop extending to the right lower quadrant, no abnormal torquing of the mesenteric vessels to indicate sigmoid volvulus at this time. Dr. Adhikari was contacted as CT results are consistent with presentation and physical exam. Dr. Adhikari recommended barium enema study which was obtained and normal. Results discussed with patient. At this time patient is okay to be discharged with strict return parameters. Patient verbalizes understanding and is agreeable to plan. Dr. Beasley is my attending. (Laura Chavez) Patient with right-sided lower abdominal pain. She is well-appearing no rebound or guarding on exam, very minimal tenderness. CT showed one dilated segment of sigmoid colon with concern for the possibility of volvulus. I did discuss case with Dr. Adhikari who recommended CT with rectal contrast however the interventional radiologist was available and able to do a barium enema study. This was performed and was negative for all the list. Patient not requiring any pain medication while emergency department return parameters discussed. Discharged home. (Garth Beasley) - Lab Data Lab Results 05/22/21 05/22/21 05/22/21 Range/Units 15:28 15:28 15:28 WBC 6.3 (3.8-10.6) k/uL RBC 4.89 (3.80-5.40) m/uL Hgb 14.3 (11.4-16.0) gm/dL Hct 42.5 (34.0-46.0) % MCV 86.9 (80.0-100.0) fL MCH 29.3 (25.0-35.0) pg MCHC 33.7 (31.0-37.0) g/dL RDW 13.1 (11.5-15.5) % Plt Count 254 (150-450) k/uL MPV 7.2 Neutrophils % 56 % Lymphocytes % 28 % Monocytes % 4 % Eosinophils % 8 % Basophils % 1 % Neutrophils # 3.5 (1.3-7.7) k/uL Lymphocytes # 1.8 (1.0-4.8) k/uL Monocytes # 0.3 (0-1.0) k/uL Eosinophils # 0.5 (0-0.7) k/uL Basophils # 0.1 (0-0.2) k/uL Sodium 139 (137-145) mmol/L Potassium 3.5 (3.5-5.1) mmol/L Chloride 105 (98-107) mmol/L Carbon Dioxide 25 (22-30) mmol/L Anion Gap 9 mmol/L BUN 16 (7-17) mg/dL Creatinine 0.70 (0.52-1.04) mg/dL Est GFR (CKD-EPI)AfAm >90 (>60 ml/min/1.73 sqM) Est GFR (CKD-EPI)NonAf >90 (>60 ml/min/1.73 sqM) Glucose 88 (74-99) mg/dL Plasma Lactic Acid Ryan (0.7-2.0) mmol/L Calcium 9.1 (8.4-10.2) mg/dL Total Bilirubin 1.6 H (0.2-1.3) mg/dL AST 26 (14-36) U/L ALT 22 (4-34) U/L Alkaline Phosphatase 62 (38-126) U/L Total Protein 7.4 (6.3-8.2) g/dL Albumin 4.4 (3.5-5.0) g/dL Lipase 79 (23-300) U/L Urine Color Light Yellow Urine Appearance Clear (Clear) Urine pH 6.5 (5.0-8.0) Ur Specific [place] 1.007 (1.001-1.035) Urine Protein Negative (Negative) Urine Glucose (UA) Negative (Negative) Urine Ketones Negative (Negative) Urine Blood Negative (Negative) Urine Nitrite Negative (Negative) Urine Bilirubin Negative (Negative) Urine Urobilinogen <2.0 (<2.0) mg/dL Ur Leukocyte Esterase Negative (Negative) 05/22/21 Range/Units 15:28 WBC (3.8-10.6) k/uL RBC (3.80-5.40) m/uL Hgb (11.4-16.0) gm/dL Hct (34.0-46.0) % MCV (80.0-100.0) fL MCH (25.0-35.0) pg MCHC (31.0-37.0) g/dL RDW (11.5-15.5) % Plt Count (150-450) k/uL MPV Neutrophils % % Lymphocytes % % Monocytes % % Eosinophils % % Basophils % % Neutrophils # (1.3-7.7) k/uL Lymphocytes # (1.0-4.8) k/uL Monocytes # (0-1.0) k/uL Eosinophils # (0-0.7) k/uL Basophils # (0-0.2) k/uL Sodium (137-145) mmol/L Potassium (3.5-5.1) mmol/L Chloride (98-107) mmol/L Carbon Dioxide (22-30) mmol/L Anion Gap mmol/L BUN (7-17) mg/dL Creatinine (0.52-1.04) mg/dL Est GFR (CKD-EPI)AfAm (>60 ml/min/1.73 sqM) Est GFR (CKD-EPI)NonAf (>60 ml/min/1.73 sqM) Glucose (74-99) mg/dL Plasma Lactic Acid Ryan 0.8 (0.7-2.0) mmol/L Calcium (8.4-10.2) mg/dL Total Bilirubin (0.2-1.3) mg/dL AST (14-36) U/L ALT (4-34) U/L Alkaline Phosphatase (38-126) U/L Total Protein (6.3-8.2) g/dL Albumin (3.5-5.0) g/dL Lipase (23-300) U/L Urine Color Urine Appearance (Clear) Urine pH (5.0-8.0) Ur Specific [place] (1.001-1.035) Urine Protein (Negative) Urine Glucose (UA) (Negative) Urine Ketones (Negative) Urine Blood (Negative) Urine Nitrite (Negative) Urine Bilirubin (Negative) Urine Urobilinogen (<2.0) mg/dL Ur Leukocyte Esterase (Negative) Disposition Is patient prescribed a controlled substance at d/c from ED?: No Time of Disposition: 18:35 <Laura Chavez - Last Filed: 05/22/21 20:29> <Garth Beasley - Last Filed: 05/23/21 09:36> Clinical Impression: Right lower quadrant abdominal pain Disposition: HOME SELF-CARE Condition: Fair Instructions (If sedation given, give patient instructions): Abdominal Pain (ED) Additional Instructions: Please return to the emergency department if you experience new, concerning, or worsening symptoms. Referrals: Jo Barrera DO [Primary Care Provider] - 1-2 days
[2021-05-22 19:03] VITALS: BP 163/77; PULSE 54; RESP 16
--- NOTE | 2021-05-24 15:35 | FL ---
EXAMINATION TYPE: FL barium enema single contrast, Omnipaque 370 DATE OF EXAM: 05/22/2021 COMPARISON: CT same day HISTORY: 55-year-old female pain and abnormal CT abdomen, rule out sigmoid volvulus. TECHNIQUE: Single contrast study with Isovue-370. 500 mL was instilled rectally. Total fluoroscopy time: 55 seconds Total images: 27. FINDINGS: Initial images show contrast accumulated in the bladder from previous IV contrast injection. Contrast material flowed easily from the rectum up into the splenic flexure of the colon. Scattered mild dive rticular changes are present. No abnormal tapering or narrowing or abnormal distended sigmoid loop is identified. IMPRESSION: 1. Exam negative for sigmoid volvulus. Findings called to Dr. Beasley in the ER at 5:50 PM. 2. Aside from scattered mild colonic diverticulosis, no specific abnormality of the left side of the colon.
== END 2021-05-22 18:45 | disposition home or self-care (01) ==
LOC: EC 13:47
DX: K57.30 Diverticulosis of large intestine without perforation or abscess without bleeding (principal); J45.909 Unspecified asthma, uncomplicated; I10 Essential (primary) hypertension; Z79.899 Other long term (current) drug therapy; Z88.0 Allergy status to penicillin
CPT/HCPCS: 36415; 80053; 83605; 83690; 85025; 81003; 74270; 74177; 99284; Q9967 ×2

== ENCOUNTER 2021-09-17 07:46 | Day surgery (SDC) | payer OTHER ==
[2021-09-15 10:38] VITALS: BMI 30.9
--- NOTE | 2021-09-17 07:37 | P.GSHP ---
History of Present Illness H&P Date: 09/17/21 CHIEF COMPLAINT: Colon screen HISTORY OF PRESENT ILLNESS: The patient is a 55-year-old female who presents for colon screen. Lower endoscopy was offered for further evaluation and management. PAST MEDICAL HISTORY: Please see list. PAST SURGICAL HISTORY: Please see list. MEDICATIONS: Please see list. ALLERGIES: Please see list. SOCIAL HISTORY: No illicit drug use FAMILY HISTORY: No reports of Crohn disease or ulcerative colitis. REVIEW OF ORGAN SYSTEMS: CONSTITUTIONAL: No reports of fevers or chills. PHYSICAL EXAM: VITAL SIGNS: Stable GENERAL: Well-developed pleasant in no acute distress. HEENT: No scleral icterus. Extraocular movements grossly intact. Moist buccal mucosa. NECK: Supple without lymphadenopathy. CHEST: Unlabored respirations. Equal bilateral excursions. CARDIOVASCULAR: Regular rate and rhythm. Distal 2+ pulses. ABDOMEN: Soft, nontender, nondistended. MUSCULOSKELETAL: No clubbing, cyanosis, or edema. ASSESSMENT: 1. Colon screen. PLAN: 1. Recommend proceeding with a lower endoscopy Past Medical History Past Medical History: Asthma, Hypertension History of Any Multi-Drug Resistant Organisms: None Reported Past Surgical History: Section, Hysterectomy, Tonsillectomy Additional Past Surgical History / Comment(s): abdominoplasty Past Anesthesia/Blood Transfusion Reactions: No Reported Reaction Smoking Status: Never smoker - Past Family History Mother Family Medical History: Cancer Additional Family Medical History / Comment(s): SMALL CELL LUNG CANCER Medications and Allergies Home Medications Medication Instructions Recorded Confirmed Type Fluticasone Nasal [place] [Flonase 1 spray EA NOSTRIL HS PRN 02/24/18 09/15/21 History Nasal [place]] Multivitamins, Thera [Multivitamin 1 tab PO DAILY 02/24/18 09/15/21 History (formulary)] hydroCHLOROthiazide [Hydrodiuril] 12.5 mg PO DAILY 02/24/18 09/15/21 History Atorvastatin Calcium [Lipitor] 20 mg PO MOWEFR@2100 05/22/21 09/15/21 History Cyclobenzaprine [Flexeril] 10 mg PO DAILY PRN 05/22/21 09/15/21 History FLUoxetine HCL [PROzac] 10 mg PO DAILY 05/22/21 09/15/21 History Loratadine [Claritin] 10 mg PO DAILY 05/22/21 09/15/21 History Allergies Allergy/AdvReac Type Severity Reaction Status Date / Time adhesive tape Allergy Itching, Verified 09/15/21 10:39 BLISTERS Penicillins Allergy Unknown Verified 09/15/21 10:08 Childhood
[2021-09-17] MEDS ORDERED: LIDOCAINE 1% (10MG/ML) FOR IV START INTRADERMA PRN (07:47)
[2021-09-17] MEDS ORDERED: LACTATED RINGERS 1,000 ML IV SCH (07:47)
[2021-09-17 08:11] VITALS: TEMP 97.8
[2021-09-17] MEDS ORDERED: PROPOFOL 10 MG/ML 20 ML VIAL IV ONE (08:47)
[2021-09-17] MEDS ORDERED: LIDOCAINE 2% INJ 20 MG/ML (2 ML VIAL) ONE (08:47)
--- NOTE | 2021-09-17 09:18 | P.PCN ---
Date of Procedure: 09/17/21 Description of Procedure: PREOPERATIVE DIAGNOSIS: Colonoscopy screening. POSTOPERATIVE DIAGNOSIS: Colonoscopy screening. Diverticulosis, scattered. OPERATION: Colonoscopy to the cecum, ileocecal valve and appendiceal orifice. SURGEON: Milagros Montoya MD. ANESTHESIA: MAC. INDICATIONS: The patient is a 55-year-old female who presents for colonoscopy screening. Last colonoscopy over 5 years ago Benefits and risks were described and informed consent was obtained. DESCRIPTION OF PROCEDURE: The patient had undergone Sutab prep. The patient had been brought into the operating room and laid in the left lateral decubitus position. After adequate intravenous sedation, the rectum was examined with 2% lidocaine jelly. No external hemorrhoids were encountered. The rectal tone was within normal limits. No lesions were palpated in the rectal vault. An Olympus colonoscope was advanced until the cecum, ileocecal valve and appendiceal orifice were clearly viewed. The prep was excellent. Scattered diverticulosis was encountered. No colonic polyps were found. No evidence of focal colitis was found. Retroflexion of the scope demonstrated grade 1 internal hemorrhoids without active bleeding or inflammation. The colon was desufflated. The patient had tolerated the procedure well. Withdrawal time was over 6 minutes. FINDINGS: Aronchick preparation quality scale 1 (1-5) Internal hemorrhoids, grade 1 No external prolapsed hemorrhoids. No arteriovenous malformations. No adenomatous polyps. No focal colitis. Sigmoid diverticulosis with pandiverticulosis RECOMMENDATIONS: Lower endoscopy in 10 years, 2031 Plan - Discharge Summary Discharge Rx Participant: No New Discharge Prescriptions: Continue Multivitamins, Thera [Multivitamin (formulary)] 1 tab PO DAILY Fluticasone Nasal [place] [Flonase Nasal [place]] 1 spray EA NOSTRIL HS PRN PRN Reason: Allergy Symptoms hydroCHLOROthiazide [Hydrodiuril] 12.5 mg PO DAILY Loratadine [Claritin] 10 mg PO DAILY FLUoxetine HCL [PROzac] 10 mg PO DAILY Cyclobenzaprine [Flexeril] 10 mg PO DAILY PRN PRN Reason: MUSCLE SPASM Atorvastatin Calcium [Lipitor] 20 mg PO MOWEFR@2100 Discharge Medication List Fluticasone Nasal [place] [Flonase Nasal [place]] 1 spray EA NOSTRIL HS PRN 02/24/18 [History] Multivitamins, Thera [Multivitamin (formulary)] 1 tab PO DAILY 02/24/18 [History] hydroCHLOROthiazide [Hydrodiuril] 12.5 mg PO DAILY 02/24/18 [History] Atorvastatin Calcium [Lipitor] 20 mg PO MOWEFR@2100 05/22/21 [History] Cyclobenzaprine [Flexeril] 10 mg PO DAILY PRN 05/22/21 [History] FLUoxetine HCL [PROzac] 10 mg PO DAILY 05/22/21 [History] Loratadine [Claritin] 10 mg PO DAILY 05/22/21 [History] Follow up Appointment(s)/Referral(s): Milagros Montoya MD [STAFF PHYSICIAN] - 09/29/21 Patient Instructions/Handouts: Diverticulosis Diet (GEN), Diverticulosis (DC), *Surgery [facility] - (Anesthesia) Endoscopy Discharge Instructions Activity/Diet/Wound Care/Special Instructions: Repeat colonoscopy in 10 years, 2031 Discharge Disposition: HOME SELF-CARE
[2021-09-17 09:31] VITALS: BP 127/67; PULSE 57; RESP 18
== END 2021-09-17 09:49 | disposition home or self-care (01) ==
LOC: ORWHC2ENDO 07:46
PROVIDERS: ATTEND Surgery Plastic and Reconstructive Surgery
DX: Z12.11 Encounter for screening for malignant neoplasm of colon (principal); K57.30 Diverticulosis of large intestine without perforation or abscess without bleeding; K64.0 First degree hemorrhoids; I10 Essential (primary) hypertension; J45.909 Unspecified asthma, uncomplicated; Z98.891 History of uterine scar from previous surgery; Z90.710 Acquired absence of both cervix and uterus; Z98.890 Other specified postprocedural states; Z80.1 Family history of malignant neoplasm of trachea, bronchus and lung; Z79.899 Other long term (current) drug therapy; Z88.0 Allergy status to penicillin; Z91.09 Other allergy status, other than to drugs and biological substances
CPT/HCPCS: J2704; J2001; G0121

== ENCOUNTER → 2022-06-22 | Outpatient (CLI) | payer OTHER ==
--- NOTE | 2022-06-23 11:11 | MM ---
Reason for Exam: Screening (asymptomatic). Last mammogram was performed 1 year(s) and 11 month(s) ago. Patient History: Menarche at age 10. First Full-Term at age 24. Hysterectomy at age 46. Postmenopausal. Patient used Hormonal Contraceptives for 10 years. Sister had breast cancer, age 50. Risk Values: Nadja 5 year model risk: 2.6%. NCI Lifetime model risk: 14.6%. Prior Study Comparison: 02/26/2018 Screening Mammogram, [place]. 10/09/2018 Bilateral Screening Mammogram, [facility]. 07/10/2020 Bilateral Screening Mammogram, [facility]. Tissue Density: There are scattered fibroglandular densities. Findings: Analyzed By CAD. There is no suspicious group of microcalcifications or new suspicious mass in either breast. Overall Assessment: Negative, BI-RAD 1 Management: Screening Mammogram of both breasts in 1 year. A clinical breast exam by your physician is recommended on an annual basis and results should be correlated with mammographic findings. Electronically signed and approved by: Lyle Bills D.O.
== END | disposition home or self-care (01) ==
LOC: RADMAMWWP 07:49
PROVIDERS: ATTEND Family Medicine
DX: Z12.31 Encounter for screening mammogram for malignant neoplasm of breast (principal); Z78.0 Asymptomatic menopausal state; Z80.3 Family history of malignant neoplasm of breast
CPT/HCPCS: 77063; 77067

== ENCOUNTER 2022-08-01 21:15 | Emergency (ER) | payer OTHER ==
[2022-08-01 21:29] VITALS: TEMP 97.7
[2022-08-01] MEDS ORDERED: SODIUM CHLORIDE 0.9% 1,000 ML IV STA (21:51)
[2022-08-01 22:04] LABS: Basophils % (A) 0 %; Eosinophils # (A) 0.5 k/uL (0-0.7); Eosinophils % (A) 7 %; HCT 39.7 % (34.0-46.0); HGB 13.7 gm/dL (11.4-16.0); Lymphocytes # (A) 2.1 k/uL (1.0-4.8); Lymphocytes % (A) 32 %; MCH 29.5 pg (25.0-35.0); MCHC 34.5 g/dL (31.0-37.0); MCV 85.6 fL (80.0-100.0); Mean Platelet Volume 7.3; Monocytes # (A) 0.3 k/uL (0-1.0); Monocytes % (A) 4 %; Neutrophils # (A) 3.6 k/uL (1.3-7.7); Neutrophils % (A) 54 %; Platelet Count 220 k/uL (150-450); RBC 4.63 m/uL (3.80-5.40); RDW 13.3 % (11.5-15.5); WBC 6.6 k/uL (3.8-10.6)
[2022-08-01 22:13] LABS: ALT 21 U/L (4-34); AST 26 U/L (14-36); African American GFR (CKD) >90 (>60 ml/min/1.73 sqM); Alcohol 28 mg/dL; Alkaline Phosphatase 54 U/L (38-126); Anion Gap 13 mmol/L; Blood Urea Nitrogen 15 mg/dL (7-17); Calcium 8.4 mg/dL (8.4-10.2); Carbon Dioxide 20 mmol/L (22-30); Chloride 108 mmol/L (98-107); Glucose 97 mg/dL (74-99); Magnesium 2.1 mg/dL (1.6-2.3); Non-African American GFR(CKD) 85 (>60 ml/min/1.73 sqM); Potassium 2.9 mmol/L (3.5-5.1); Sodium 141 mmol/L (137-145); Total Bilirubin 0.8 mg/dL (0.2-1.3); Total Protein 6.8 g/dL (6.3-8.2)
[2022-08-01 22:27] LABS: INR 0.9 (<1.2)
[2022-08-01 22:32] LABS: Partial Thromboplastin Time 16.5 sec (22.0-30.0)
[2022-08-01] MEDS ORDERED: POTASSIUM CHLORIDE ER 20 MEQ TAB.ER PO STA (22:39)
[2022-08-01] MEDS ORDERED: ONDANSETRON 4 MG/2 ML VIAL IVP STA (23:00)
--- NOTE | 2022-08-01 23:31 | ED ---
General Adult HPI - General Chief complaint: Syncope Stated complaint: Syncope Time Seen by Provider: 08/01/22 21:51 Source: patient, EMS, RN notes reviewed Mode of arrival: EMS Limitations: no limitations - History of Present Illness Initial comments: Patient is a 56-year-old female presenting to the emergency room via EMS after having a syncopal/blackout episode prior to contacting EMS and her arrival. She reports that she was out with family and had had 2 alcoholic drinks and then had smoked THC from a electronic THC pen within a few minutes she was sitting back down in a chair at the facility they were at and she slumped over going briefly unconscious. Daughter who was with her along with her spouse deny any fall to the ground. She is not on any blood thinners. She immediately returned to baseline mental status. She denies any focal neurological deficits. She denies any previous episodes of syncope. She denies any chest pain, shortness breath, abdominal pain, nausea, vomiting, headache, dizziness, blurred or double vision, fevers or chills. She has a past medical history significant for asthma and hypertension. - Related Data Home Medications Medication Instructions Recorded Confirmed Fluticasone Nasal [place] [Flonase 1 spray EA NOSTRIL HS PRN 02/24/18 09/17/21 Nasal [place]] Multivitamins, Thera [Multivitamin 1 tab PO DAILY 02/24/18 09/17/21 (formulary)] hydroCHLOROthiazide [Hydrodiuril] 12.5 mg PO DAILY 02/24/18 09/17/21 Atorvastatin Calcium [Lipitor] 20 mg PO MOWEFR@2100 05/22/21 09/17/21 Cyclobenzaprine [Flexeril] 10 mg PO DAILY PRN 05/22/21 09/17/21 FLUoxetine HCL [PROzac] 10 mg PO DAILY 05/22/21 09/17/21 Loratadine [Claritin] 10 mg PO DAILY 05/22/21 09/17/21 Allergies Allergy/AdvReac Type Severity Reaction Status Date / Time adhesive tape Allergy Itching, Verified 08/01/22 21:29 BLISTERS Penicillins Allergy Unknown Verified 08/01/22 21:29 Childhood Review of Systems ROS Statement: Those systems with pertinent positive or pertinent negative responses have been documented in the HPI. ROS Other: All systems not noted in ROS Statement are negative. Past Medical History Past Medical History: Asthma, Hypertension History of Any Multi-Drug Resistant Organisms: None Reported Past Surgical History: Section, Hysterectomy, Tonsillectomy Additional Past Surgical History / Comment(s): abdominoplasty Past Anesthesia/Blood Transfusion Reactions: No Reported Reaction Past Psychological History: No Psychological Hx Reported Smoking Status: Never smoker Past Alcohol Use History: Occasional Past Drug Use History: Marijuana - Past Family History Mother Family Medical History: Cancer Additional Family Medical History / Comment(s): SMALL CELL LUNG CANCER General Exam - General Exam Comments Initial Comments: GENERAL: No acute distress, well developed, well nourished. HEENT: Normocephalic, atraumatic. Pupils equal, round, reactive to light. Moist mucous membranes. LUNGS: No respiratory distress. Clear to auscultation, no adventitious sounds, no use of accessory muscles. HEART: Regular rate and rhythm without murmur, rub, or gallop. ABDOMEN: Normal bowel sounds. Soft, non-tender, non-distended. BACK: Normal inspection. EXTREMITIES: No edema. No tenderness. Moves all extremities. NEUROLOGIC: Alert & oriented x 3. CN II-XII grossly intact. PSYCHIATRIC: Normal affect and behavior. DERMATOLOGIC: Skin intact, without rashes or lesions noted. Limitations: no limitations Course Vital Signs 08/01/22 08/01/22 21:24 23:35 Temperature 97.7 F Pulse Rate 61 82 Respiratory 15 18 Rate Blood Pressure 128/86 120/78 O2 Sat by Pulse 97 96 Oximetry Medical Decision Making - Medical Decision Making Was pt. sent in by a medical professional or institution (, PA, OFFICE ADMIN, urgent care, hospital, or [place] [facility] facility...) When possible be specific @ -No Did you speak to anyone other than the patient for history (EMS, parent, family, police, friend...)? What history was obtained from this source @ -Yes, spoke with spouse and daughter at bedside as regarding details of syncopal event. Did you review nursing and triage notes (agree or disagree)? Why? @ -I reviewed and agree with nursing and triage notes Were old charts reviewed (outside hosp., previous admission, EMS record, old EKG, old radiological studies, urgent care reports/EKG's, [place] [facility] facility records)? Report findings @ -No old charts were reviewed Differential Diagnosis (chest pain, altered mental status, abdominal pain women, abdominal pain men, vaginal bleeding, weakness, fever, dyspnea, syncope, headache, dizziness, GI bleed, back pain, seizure, CVA, palpatations, mental he alth, musculoskeletal)? @ -Differential Syncope: Valvular disease, hypertrophic cardiomyopathy, pulmonary embolism, tamponade, tachycardia, bradycardia, MS, hypovolemia, hemorrhage, dissection, anemia, intracranial hemorrhage, seizure, hypoglycemia, carbon monoxide poisoning, this is not meant to be an all-inclusive list. EKG interpreted by me (3pts min.). @ -Sinus rhythm, ventricular rate 61 bpm, IN interval 140 ms, QRS duration 105 ms, QT/QTC 06/14/1961/464 ms, PRT axes 53, 56, 72 X-rays interpreted by me (1pt min.). @ -None done CT interpreted by me (1pt min.). @ -None done U/S interpreted by me (1pt. min.). @ -None done What testing was considered but not performed or refused? (CT, X-rays, U/S, labs)? Why? @ -Computed tomography scan considered but deferred due to lack of head trauma, lack of blood thinners, absence of focal neurological deficits and return to baseline. What meds were considered but not given or refused? Why? @ -None Did you discuss the management of the patient with other professionals (elen godoy i.eYousif Richard, PA, OFFICE ADMIN, lab, RT, psych nurse, social contact worker, utilities estimator and drafter, teacher, homicide squad commanding officer, gis manager)? Give summary @ -No Was smoking cessation discussed for >3mins.? @ -No Was critical care preformed (if so, how long)? @ -No Were there social determinants of health that impacted care today? How? (Homelessness, low income, unemployed, alcoholism, drug addiction, transportation, low edu. Level, literacy, decrease access to med. care, prison, rehab)? @ -No Was there de-escalation of care discussed even if they declined (Discuss DNR or withdrawal of care, Hospice)? DNR status @ -No What co-morbidities impacted this encounter? (DM, HTN, Smoking, COPD, CAD, Cancer, CVA, ARF, Chemo, Hep., AIDS, mental health diagnosis, sleep apnea, morbid obesity)? @ -None Was patient admitted / discharged? Hospital course, mention meds given and route, prescriptions, significant lab abnormalities, going to OR and other pertinent info. @ -56-year-old female presents to the emergency room via EMS after having a syncopal episode while out this evening with family and friends. She has had 2 alcoholic beverages and THC when she sat down and went unconscious briefly. She she did not have any head trauma and is not on blood thinners. She has not had previous syncopal events before. She returned to baseline mental status without any weakness. Will start workup for syncopal with EKG, no indication for computed tomography scan will obtain laboratory studies of CBC, CMP, coags, magnesium, troponin and serum alcohol level. Will give 1 L fluid bolus. EKG shows sinus rhythm. CBC normal. Coags stable. CMP demonstrates low potassium at 2.9 will replete orally. Sodium and magnesium normal. Renal function normal, liver function normal, troponin negative, serum alcohol level 28. Oral repletion cause nausea Zofran given with good response to nausea. Tolerated IV hydration well. Above findings discussed with patient and family at bedside. No indication for further diagnostic imaging or laboratory studies. Encouraged good hydration and follow-up with primary care provider regarding repeat laboratory studies for hypokalemia. Questions and concerns answered. Return parameters to the emergency room discussed. Will discharge home in stable condition with monitoring and good hydration status post atypical syncope and follow-up with primary care provider regarding hypokalemia. Undiagnosed new problem with uncertain prognosis? @ -No Drug Therapy requiring intensive monitoring for toxicity (Heparin, Nitro, Insulin, Cardizem)? @ -No Were any procedures done? @ -No Diagnosis/symptom? @ -Atypical syncope Acute, or Chronic, or Acute on Chronic? @ -Acute Uncomplicated (without systemic symptoms) or Complicated (systemic symptoms)? @ -Uncomplicated Side effects of treatment? @ -No Exacerbation, Progression, or Severe Exacerbation? @ -No Poses a threat to life or bodily function? How? (Chest pain, USA, MS, pneumonia, PE, COPD, DKA, ARF, appy, cholecystitis, CVA, Diverticulitis, Homicidal, Suicidal, threat to staff... and all critical care pts) @ -No Diagnosis/symptom? @ -Hypokalemia Acute, or Chronic, or Acute on Chronic? @ -Acute Uncomplicated (without systemic symptoms) or Complicated (systemic symptoms)? @ -Uncomplicated Side effects of treatment? @ -none Exacerbation, Progression, or Severe Exacerbation] @ -no Poses a threat to life or bodily function? @ -no Case discussed with Dr. Jessica - Lab Data Result diagrams: 08/01/22 21:55 08/01/22 21:55 Lab Results 08/01/22 08/01/22 08/01/22 Range/Units 21:55 21:55 21:55 WBC 6.6 (3.8-10.6) k/uL RBC 4.63 (3.80-5.40) m/uL Hgb 13.7 (11.4-16.0) gm/dL Hct 39.7 (34.0-46.0) % MCV 85.6 (80.0-100.0) fL MCH 29.5 (25.0-35.0) pg MCHC 34.5 (31.0-37.0) g/dL RDW 13.3 (11.5-15.5) % Plt Count 220 (150-450) k/uL MPV 7.3 Neutrophils % 54 % Lymphocytes % 32 % Monocytes % 4 % Eosinophils % 7 % Basophils % 0 % Neutrophils # 3.6 (1.3-7.7) k/uL Lymphocytes # 2.1 (1.0-4.8) k/uL Monocytes # 0.3 (0-1.0) k/uL Eosinophils # 0.5 (0-0.7) k/uL Basophils # 0.0 (0-0.2) k/uL PT 10.0 (9.0-12.0) sec INR 0.9 (<1.2) APTT 16.5 L (22.0-30.0) sec Sodium 141 (137-145) mmol/L Potassium 2.9 L (3.5-5.1) mmol/L Chloride 108 H (98-107) mmol/L Carbon Dioxide 20 L (22-30) mmol/L Anion Gap 13 mmol/L BUN 15 (7-17) mg/dL Creatinine 0.77 (0.52-1.04) mg/dL Est GFR (CKD-EPI)AfAm >90 (>60 ml/min/1.73 sqM) Est GFR (CKD-EPI)NonAf 85 (>60 ml/min/1.73 sqM) Glucose 97 (74-99) mg/dL Calcium 8.4 (8.4-10.2) mg/dL Magnesium 2.1 (1.6-2.3) mg/dL Total Bilirubin 0.8 (0.2-1.3) mg/dL AST 26 (14-36) U/L ALT 21 (4-34) U/L Alkaline Phosphatase 54 (38-126) U/L Troponin I (0.000-0.034) ng/mL Total Protein 6.8 (6.3-8.2) g/dL Albumin 4.0 (3.5-5.0) g/dL Serum Alcohol 28 mg/dL 08/01/22 Range/Units 21:55 WBC (3.8-10.6) k/uL RBC (3.80-5.40) m/uL Hgb (11.4-16.0) gm/dL Hct (34.0-46.0) % MCV (80.0-100.0) fL MCH (25.0-35.0) pg MCHC (31.0-37.0) g/dL RDW (11.5-15.5) % Plt Count (150-450) k/uL MPV Neutrophils % % Lymphocytes % % Monocytes % % Eosinophils % % Basophils % % Neutrophils # (1.3-7.7) k/uL Lymphocytes # (1.0-4.8) k/uL Monocytes # (0-1.0) k/uL Eosinophils # (0-0.7) k/uL Basophils # (0-0.2) k/uL PT (9.0-12.0) sec INR (<1.2) APTT (22.0-30.0) sec Sodium (137-145) mmol/L Potassium (3.5-5.1) mmol/L Chloride (98-107) mmol/L Carbon Dioxide (22-30) mmol/L Anion Gap mmol/L BUN (7-17) mg/dL Creatinine (0.52-1.04) mg/dL Est GFR (CKD-EPI)AfAm (>60 ml/min/1.73 sqM) Est GFR (CKD-EPI)NonAf (>60 ml/min/1.73 sqM) Glucose (74-99) mg/dL Calcium (8.4-10.2) mg/dL Magnesium (1.6-2.3) mg/dL Total Bilirubin (0.2-1.3) mg/dL AST (14-36) U/L ALT (4-34) U/L Alkaline Phosphatase (38-126) U/L Troponin I <0.012 (0.000-0.034) ng/mL Total Protein (6.3-8.2) g/dL Albumin (3.5-5.0) g/dL Serum Alcohol mg/dL Disposition Clinical Impression: Atypical syncope Disposition: HOME SELF-CARE Condition: Stable Instructions (If sedation given, give patient instructions): Hypokalemia (ED), Syncope (ED) Additional Instructions: Stay well hydrated. Please follow-up with your primary care provider next week for repeat of potassium level. Change positions slowly. Please return to the Emergency Department if symptoms worsen or any other concerns. Is patient prescribed a controlled substance at d/c from ED?: No Referrals: Jo Barrera DO [Primary Care Provider] - 1-2 days Time of Disposition: 23:30
[2022-08-01 23:36] VITALS: BP 120/78; PULSE 82; RESP 18
== END 2022-08-01 23:44 | disposition home or self-care (01) ==
LOC: EC 21:15
DX: R55 Syncope and collapse (principal); E87.6 Hypokalemia; I10 Essential (primary) hypertension; J45.909 Unspecified asthma, uncomplicated; F12.90 Cannabis use, unspecified, uncomplicated; Z79.51 Long term (current) use of inhaled steroids; Z79.899 Other long term (current) drug therapy; Z88.0 Allergy status to penicillin; Z91.09 Other allergy status, other than to drugs and biological substances
CPT/HCPCS: 36415; 93005; 80053; 83735; 84484; 85025; 85610; 85730; 80320; 99284; 96374; 96361 ×2; J2405

== ENCOUNTER 2024-01-02 21:01 | Emergency (ER) | payer OTHER ==
--- NOTE | 2024-01-02 21:19 | ED ---
Dizziness HPI - General Source: patient Mode of arrival: wheelchair Limitations: no limitations - History of Present Illness MD Complaint: lightheadedness Onset/Timin -: hour(s) Timing: sudden onset Description: lightheadedness History of Same: Yes (1.5 years ago following alcohol use) History of Trauma: No Improves With: rehydration Worsens With: position Associated Symptoms: other (Nausea, dry heaving, cramping) <Bay White - Last Filed: 01/02/24 21:15> <Escobar Boswell - Last Filed: 01/18/24 05:58> - General Stated Complaint: Syncope Time Seen by Provider: 01/02/24 21:14 - History of Present Illness Initial Comments: Quick note: This is a 58-year-old female with history of hypertension presenting with sudden onset of lightheadedness while attending [facility] practice. Patient states she suddenly felt cold and clammy with associated nausea, dry hea ving and muscle cramping. Patient states symptoms worsened after sitting. Patient endorses second occurrence shortly after the first with resolution after receiving IV fluids. Patient endorses history of similar symptoms 1.5 years ago following EtOH use. Patient denies associated chest pain, dyspnea, radiating pain, abdominal pain, vomiting. Patient denies history of CAD or AMI. ( Bay White) - Related Data Home Medications Medication Instructions Recorded Confirmed Fluticasone Nasal Ralph [Flonase 1 spray EA NOSTRIL HS PRN 02/24/18 09/17/21 Nasal Ralph] Multivitamins, Thera [Multivitamin 1 tab PO DAILY 02/24/18 09/17/21 (formulary)] hydroCHLOROthiazide [Hydrodiuril] 12.5 mg PO DAILY 02/24/18 09/17/21 Atorvastatin Calcium [Lipitor] 20 mg PO MOWEFR@2100 05/22/21 09/17/21 Cyclobenzaprine [Flexeril] 10 mg PO DAILY PRN 05/22/21 09/17/21 FLUoxetine HCL [PROzac] 10 mg PO DAILY 05/22/21 09/17/21 Loratadine [Claritin] 10 mg PO DAILY 05/22/21 09/17/21 Allergies Allergy/AdvReac Type Severity Reaction Status Date / Time adhesive tape Allergy Itching, Verified 01/02/24 21:36 BLISTERS Penicillins Allergy Unknown Verified 01/02/24 21:36 Childhood Review of Systems ROS Other: All systems not noted in ROS Statement are negative. <Bay White - Last Filed: 01/02/24 21:15> ROS Other: All systems not noted in ROS Statement are negative. <Escobar Boswell - Last Filed: 01/18/24 05:58> ROS Statement: Those systems with pertinent positive or pertinent negative responses have been documented in the HPI. Past Medical History Past Medical History: Asthma, Hypertension History of Any Multi-Drug Resistant Organisms: None Reported Past Surgical History: Section, Hysterectomy, Tonsillectomy Additional Past Surgical History / Comment(s): abdominoplasty Past Anesthesia/Blood Transfusion Reactions: No Reported Reaction Past Psychological History: No Psychological Hx Reported Smoking Status: Never smoker Past Alcohol Use History: Occasional Past Drug Use History: Marijuana - Past Family History Mother Family Medical History: Cancer Additional Family Medical History / Comment(s): SMALL CELL LUNG CANCER <Bay White - Last Filed: 01/02/24 21:15> General Exam <Bay White - Last Filed: 01/02/24 21:15> - General Exam Comments Initial Comments: Visual Physical Exam Vital signs reviewed General: Well-appearing, nontoxic, no acute distress. Head: Normocephalic, atraumatic Eyes: PERRLA, EOMI ENT: Airway patent Chest: Nonlabored breathing Skin: No visual rash, normal skin tone Neuro: Alert and oriented 3 Musculoskeletal: No gross abnormalities (Bay White) Course Vital Signs 01/02/24 01/02/24 01/03/24 21:15 23:57 01:54 Temperature 97.8 F 97.1 F L Pulse Rate 61 57 L 54 L Respiratory 18 18 18 Rate Blood Pressure 112/66 116/86 138/77 O2 Sat by Pulse 96 94 L 96 Oximetry EKG Findings - EKG Comments: EKG Findings:: Possible old anterior infarct - EKG Results: EKG: interpreted by ERMD, sinus rhythm (Rate 60 bpm), normal ST/T - Blocks, Logan, Hypertrophy, ST Abn: QRS axis and voltage: right axis deviation (+90 to +180) (Borderline) <Escobar Boswell - Last Filed: 01/18/24 05:58> Medical Decision Making <Bay White - Last Filed: 01/02/24 21:15> - Lab Data Result diagrams: 01/03/24 00:53 01/03/24 00:53 <Escobar Boswell - Last Filed: 01/18/24 05:58> - Medical Decision Making I completed the quick note portion of this chart signed SABINO Ritter (Bay White) The patient had chest x-ray that I interpreted as negative for acute infiltrate, pneumothorax, congestive heart failure. Was pt. sent in by a medical professional or institution (SHELIA Richard, SCAN COORDINATOR, urgent care, hospital, or intermediate...) When possible be specific @ -[No] Did you speak to anyone other than the patient for history (EMS, parent, family, police, friend...)? What history was obtained from this source @ -[No] Did you review nursing and triage notes (agree or disagree)? Why? @ -[I reviewed and agree with nursing and triage notes] Were old charts reviewed (outside hosp., previous admission, EMS record, old EKG, old radiological studies, urgent care reports/EKG's, intermediate records)? Report findings @ -[No old charts were reviewed] Differential Diagnosis (chest pain, altered mental status, abdominal pain women, abdominal pain men, vaginal bleeding, weakness, fever, dyspnea, syncope, headache, dizziness, GI bleed, back pain, seizure, CVA, palpatations, mental health, musculoskeletal)? @ -[Differential Syncope: Valvular disease, hypertrophic cardiomyopathy, pulmonary embolism, tamponade, tachycardia, bradycardia, NV, hypovolemia, hemorrhage, dissection, anemia, intracranial hemorrhage, seizure, hypoglycemia, carbon monoxide poisoning, this is not meant to be an all-inclusive list. EKG interpreted by me (3pts min.). @ -[I interpreted as above] X-rays interpreted by me (1pt min.). @ -[I interpreted as above CT interpreted by me (1pt min.). @ -[None done] U/S interpreted by me (1pt. min.). @ -[None done] What testing was considered but not performed or refused? (CT, X-rays, U/S, labs)? Why? @ -[None] What meds were considered but not given or refused? Why? @ -[None] Did you discuss the management of the patient with other professionals (professionals i.e. , PA, SCAN COORDINATOR, lab, RT, psych nurse, social research assistant, superintendent storage area, teacher, banking officer, case consultant)? Give summary @ -[No] Was smoking cessation discussed for >3mins.? @ -[No] Was critical care preformed (if so, how long)? @ -[No] Were there social determinants of health that impacted care today? How? (Homelessness, low income, unemployed, alcoholism, drug addiction, transportation, low edu. Level, literacy, decrease access to med. care, skilled nursing, rehab)? @ -[No] Was there de-escalation of care discussed even if they declined (Discuss DNR or withdrawal of care, Hospice)? DNR status @ -[No] What co-morbidities impacted this encounter? (DM, HTN, Smoking, COPD, CAD, Cancer, CVA, ARF, Chemo, Hep., AIDS, mental health diagnosis, sleep apnea, morbid obesity)? @ -[None] Was patient admitted / discharged? Hospital course, mention meds given and rout e, prescriptions, significant lab abnormalities, going to OR and other pertinent info. @ -[This patient is 58-year-old woman here after near syncopal episode. Exam and history suggestive of orthostasis probably due to mild dehydration. The patient's workup supportive of this. The patient is feeling better with fluid and would like to go home. We discussed appropriate further care and follow-up as well as return parameters Undiagnosed new problem with uncertain prognosis? @ -[No] Drug Therapy requiring intensive monitoring for toxicity (Heparin, Nitro, Insulin, Cardizem)? @ -[No] Were any procedures done? @ -[No] Diagnosis/symptom? @ -[Acute near syncopal episode Acute dehydration Acute, or Chronic, or Acute on Chronic? @ -[Acute Uncomplicated (without systemic symptoms) or Complicated (systemic symptoms)? @ -[Uncomplicated Side effects of treatment? @ -[No] Exacerbation, Progression, or Severe Exacerbation? @ -[No] Poses a threat to life or bodily function? How? (Chest pain, USA, NV, pneumonia, PE, COPD, DKA, ARF, appy, cholecystitis, CVA, Diverticulitis, Homicidal, Estrellita cidal, threat to staff... and all critical care pts) @ -[No] (PauloerynEscobar) - Lab Data Lab Results 01/02/24 01/03/24 01/03/24 Range/Units 21:18 00:53 00:53 WBC (3.8-10.6) k/uL RBC (3.80-5.40) m/uL Hgb (11.4-16.0) gm/dL Hct (34.0-46.0) % MCV (80.0-100.0) fL MCH (25.0-35.0) pg MCHC (31.0-37.0) g/dL RDW (11.5-15.5) % Plt Count (150-450) k/uL MPV Neutrophils % % Lymphocytes % % Monocytes % % Eosinophils % % Basophils % % Neutrophils # (1.3-7.7) k/uL Lymphocytes # (1.0-4.8) k/uL Monocytes # (0-1.0) k/uL Eosinophils # (0-0.7) k/uL Basophils # (0-0.2) k/uL PT (10.0-12.5) sec INR (<1.2) APTT (22.0-30.0) sec Sodium 136 L (137-145) mmol/L Potassium 4.0 (3.5-5.1) mmol/L Chloride 108 H (98-107) mmol/L Carbon Dioxide 22 (22-30) mmol/L Anion Gap 6 mmol/L BUN 19 H (7-17) mg/dL Creatinine 0.83 (0.52-1.04) mg/dL Est GFR (CKD-EPI)AfAm 89 (>60 ml/min/1.73 sqM) Est GFR (CKD-EPI)NonAf 77 (>60 ml/min/1.73 sqM) Glucose 112 H (74-99) mg/dL Plasma Lactic Acid Ryan 1.4 (0.7-2.0) mmol/L Calcium 8.9 (8.4-10.2) mg/dL Total Bilirubin 1.0 (0.2-1.3) mg/dL AST 25 (14-36) U/L ALT 22 (4-34) U/L Alkaline Phosphatase 55 (38-126) U/L Troponin I <0.012 (0.000-0.034) ng/mL Total Protein 6.8 (6.3-8.2) g/dL Albumin 4.1 (3.5-5.0) g/dL 01/03/24 01/03/24 Range/Units 00:53 00:53 WBC 11.9 H (3.8-10.6) k/uL RBC 4.83 (3.80-5.40) m/uL Hgb 14.4 (11.4-16.0) gm/dL Hct 41.8 (34.0-46.0) % MCV 86.5 (80.0-100.0) fL MCH 29.8 (25.0-35.0) pg MCHC 34.4 (31.0-37.0) g/dL RDW 13.5 (11.5-15.5) % Plt Count 260 (150-450) k/uL MPV 6.9 Neutrophils % 78 % Lymphocytes % 14 % Monocytes % 3 % Eosinophils % 3 % Basophils % 1 % Neutrophils # 9.3 H (1.3-7.7) k/uL Lymphocytes # 1.7 (1.0-4.8) k/uL Monocytes # 0.4 (0-1.0) k/uL Eosinophils # 0.3 (0-0.7) k/uL Basophils # 0.1 (0-0.2) k/uL PT 10.5 (10.0-12.5) sec INR 0.9 (<1.2) APTT 20.2 L (22.0-30.0) sec Sodium (137-145) mmol/L Potassium (3.5-5.1) mmol/L Chloride (98-107) mmol/L Carbon Dioxide (22-30) mmol/L Anion Gap mmol/L BUN (7-17) mg/dL Creatinine (0.52-1.04) mg/dL Est GFR (CKD-EPI)AfAm (>60 ml/min/1.73 sqM) Est GFR (CKD-EPI)NonAf (>60 ml/min/1.73 sqM) Glucose (74-99) mg/dL Plasma Lactic Acid Ryan (0.7-2.0) mmol/L Calcium (8.4-10.2) mg/dL Total Bilirubin (0.2-1.3) mg/dL AST (14-36) U/L ALT (4-34) U/L Alkaline Phosphatase (38-126) U/L Troponin I (0.000-0.034) ng/mL Total Protein (6.3-8.2) g/dL Albumin (3.5-5.0) g/dL Disposition <Bay White - Last Filed: 01/02/24 21:15> Is patient prescribed a controlled substance at d/c from ED?: No <Escobar Boswell - Last Filed: 01/18/24 05:58> Clinical Impression: Near syncope, Dehydration Disposition: HOME SELF-CARE Condition: Good Instructions (If sedation given, give patient instructions): Dehydration (ED), Near Syncope (ED) Referrals: Jo Barrera DO [Primary Care Provider] - 1-2 days
[2024-01-02 21:36] VITALS: RESP 18
--- NOTE | 2024-01-02 23:48 | XR ---
EXAM: XR Chest, 2 Views CLINICAL HISTORY: ITS.REASON XR Reason: Lightheadedness TECHNIQUE: Frontal and lateral views of the chest. COMPARISON: X-ray chest: 10/03/2020 FINDINGS: Lungs: No consolidation, focal lesions or pleural effusions are visible. Pleural space: No pleural effusion. No pneumothorax. Medially a smoothly marginated homogeneously dense mass-like right hilar elevation. Heart: Unremarkable. No cardiomegaly. Mediastinum: Unremarkable. Normal mediastinal contour. Bones/joints: Unremarkable. No acute fracture. IMPRESSION: No acute cardiopulmonary abnormality noted. Medially/anteriorly markedly elevated right hemidiaphragm. .
[2024-01-02] MEDS: SODIUM CHLORIDE 0.9% 1,000 ML IV STA (23:58)
[2024-01-03 01:09] LABS: Basophils # (A) 0.1 k/uL (0-0.2); Basophils % (A) 1 %; Eosinophils # (A) 0.3 k/uL (0-0.7); Eosinophils % (A) 3 %; HCT 41.8 % (34.0-46.0); HGB 14.4 gm/dL (11.4-16.0); Lymphocytes # (A) 1.7 k/uL (1.0-4.8); Lymphocytes % (A) 14 %; MCH 29.8 pg (25.0-35.0); MCHC 34.4 g/dL (31.0-37.0); MCV 86.5 fL (80.0-100.0); Mean Platelet Volume 6.9; Monocytes # (A) 0.4 k/uL (0-1.0); Monocytes % (A) 3 %; Neutrophils # (A) 9.3 k/uL (1.3-7.7); Neutrophils % (A) 78 %; Platelet Count 260 k/uL (150-450); RBC 4.83 m/uL (3.80-5.40); RDW 13.5 % (11.5-15.5); WBC 11.9 k/uL (3.8-10.6)
[2024-01-03 01:20] LABS: ALT 22 U/L (4-34); AST 25 U/L (14-36); African American GFR (CKD) 89 (>60 ml/min/1.73 sqM); Albumin 4.1 g/dL (3.5-5.0); Alkaline Phosphatase 55 U/L (38-126); Anion Gap 6 mmol/L; Blood Urea Nitrogen 19 mg/dL (7-17); Calcium 8.9 mg/dL (8.4-10.2); Carbon Dioxide 22 mmol/L (22-30); Chloride 108 mmol/L (98-107); Glucose 112 mg/dL (74-99); Non-African American GFR(CKD) 77 (>60 ml/min/1.73 sqM); Sodium 136 mmol/L (137-145); Total Protein 6.8 g/dL (6.3-8.2)
[2024-01-03 01:24] LABS: INR 0.9 (<1.2); Prothrombin Time 10.5 sec (10.0-12.5)
[2024-01-03 01:30] LABS: Partial Thromboplastin Time 20.2 sec (22.0-30.0)
[2024-01-03 01:56] VITALS: BP 138/77; PULSE 54; TEMP 97.1
== END 2024-01-03 02:02 | disposition home or self-care (01) ==
LOC: EC 21:01
DX: R55 Syncope and collapse (principal); E86.0 Dehydration; Z88.0 Allergy status to penicillin; Z88.8 Allergy status to other drugs, medicaments and biological substances
CPT/HCPCS: 36415; 71046; 80053; 83605; 84484; 85025; 85610; 85730; 93005; 96360; 96361; 99284

== ENCOUNTER → 2024-01-24 | Outpatient (CLI) | payer OTHER ==
[~2024-01-24] MED LIST: REGADENOSON 0.4 MG/5 ML SYRINGE IV PRN
--- NOTE | 2024-01-24 11:42 | CA ---
Lexiscan Nuclear Stress Test Report Name: Jennifer Sheehan Exam Date: 01/24/2024 10:13 Exam Location: [facility] Stress Ht (in): Wt (lb): BSA: Ordering Phys: Polo Link MD Referring Phys: Tangela Dunlap PAC Technologist: BETTY Age: 58 Gender: F : 1965 Procedure CPT: Indications: I20.89 OTHER FORMS OF ANGINA PECTORIS ICD-10 Codes: Patient History: Syncope,palpitations and hypertension Medications: Meds past 24 hrs: Pretest Chest Pain: STRESS TEST Lexiscan Protocol Exercise Duration (min:sec): 02:[address] Depressions (mm): Angina Score: Floyd Score: Resting HR (bpm): 57 Peak HR (bpm): 87 Resting BP (mmHg): 132 / 64 Peak BP (mmHg): 139 / 70 MPHR: 160 Target HR: 136 % MPHR: 54 METS: 1.0 Total Dose: Peak Dose: Atropine: Double Product: 77033 BP Response: Stress Termination: Infusion complete Stress Symptoms: No chest pain or symptoms Stress Summary: ECG ANALYSIS Resting ECG: Stress ECG: CONCLUSIONS RESTING EKG: Sinus bradycardia with mild nonspecific interventricular conduction delay., Heart rate 58 BPM Patient recieved IV infusion of Lexiscan 0.4mg and at peak infusion STRESS EKG showed: [No significant ST-T wave changes diagnostic for ischemia by ST segment analysis] ARRYTHMIAS: [No ectopic rhythms or sustained arrythmias] CONCLUSION: 1. Normal hemodynamic and clinical response to Lexiscan infusion. 2. Non-ischemic EKG response to lexiscan infusion Please refer to the nuclear imaging portion of this stress test for complete interpretation of the study. Dr Bautista Castro (Electronically Signed) Final Date: 24 January 2024 11:42
--- NOTE | 2024-01-25 00:41 | NM ---
EXAMINATION TYPE: NM stress lexiscan cardiolite DATE OF EXAM: 01/24/2024 COMPARISON: Prior nuclear medicine stress test 2020 CLINICAL INDICATION: Female, 58 years old with history of I20.89 OTHER FORMS OF ANGINA PECTORIS; hist ory of hypertension and hypercholesterolemia. TECHNIQUE: After the intravenous administration of 10.2 mCi Tc 99m Sestamibi - Cardiolite resting SP ECT images acquired 45 minutes post injection. The patient received 0.4mg Lexiscan, 24.6 mCi Tc 99m Sestamibi - Stress images obtained [address] injection FINDINGS: Review of stress and rest SPECT images demonstrates no distinct perfusion abnormality. Gated analysi s shows normal wall motion with an estimated left ventricular ejection fraction of 71 %. IMPRESSION: No scintigraphic evidence for reversible ischemia. No significant change from prior. [facility], , 01/25/2024 12:38 AM
== END | disposition home or self-care (01) ==
LOC: RADNMMAIN 07:46
PROVIDERS: ATTEND Family Medicine
DX: I20.89 Other forms of angina pectoris (principal); E78.00 Pure hypercholesterolemia, unspecified; I10 Essential (primary) hypertension
CPT/HCPCS: 93017; 78452; A9500; J2785